=== PATIENT | male | born 2005 | race Caucasian/White ===

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

== ENCOUNTER 2024-04-29 13:37 | Outpatient (CLI) | payer BC | END 2024-04-29 13:38 | disposition home or self-care (01) | LOC: NM 13:37 | PROVIDERS: ATTEND Internal Medicine Gastroenterology | DX: K92.1 Melena (principal) | CPT/HCPCS: 78290; A9512 ==